=== PATIENT | female | born 1990 | race Caucasian/White ===

== ENCOUNTER 2018-06-25 11:32 | Day surgery (SDC) | payer OTHER ==
[2018-06-25] MEDS ORDERED: FENTAnyl 50 MCG/ML VIAL (12:35)
[2018-06-25] MEDS ORDERED: MIDAZOLAM 1 MG/ML 2 ML INJ (12:35)
[2018-06-25] MEDS ORDERED: PROPOFOL 20 ML (12:35)
[2018-06-25] MEDS ORDERED: LIDOCAINE 2% (SDV) 5 ML INJ (12:35)
== END 2018-06-25 13:44 | disposition home or self-care (01) ==
LOC: GIL 11:32
DX: K44.9 Diaphragmatic hernia without obstruction or gangrene (principal); K21.9 Gastro-esophageal reflux disease without esophagitis
CPT/HCPCS: 43239; 84703; 88305